=== PATIENT | male | born 1965 | race Caucasian/White ===

== ENCOUNTER 2022-01-17 04:46 | Emergency (ER) | payer OTHER ==
[2022-01-17 05:08] LABS: BASOPHIL 1.6 % (0-2); EOSINOPHIL 6.3 % (0-5); HGB 16.2 g/dl (13.2-18.0); LYMPHOCYTE 44.5 % (15-48); MCH 31.1 pg (25.0-31.0); MCHC 33.8 g/dL (32.0-36.0); MCV 92.1 fL (78.0-100.0); MONOCYTE 5.4 % (0-12); MPV 8.2 fL (6.0-9.5); NEUTROPHIL 41.6 % (41-80); NRBC 0; PLT 341 K/uL (150-400); RBC 5.21 M/uL (4.70-6.00); RDW 12.8 % (11.5-14.0); WBC 8.3 K/uL (4.0-10.5)
[2022-01-17 05:21] LABS: BUN/CREAT RATIO (CALC) 18.1 RATIO; CREATININE 0.72 mg/dL (0.67-1.17); POTASSIUM 3.9 mmol/L (3.5-5.1)
[2022-01-17] MEDS ORDERED: NORCO 5-325 TA1 EACH PO (08:56)
== END 2022-01-17 09:34 | disposition home or self-care (01) ==
LOC: FER 04:46
PROVIDERS: Emergency Medicine
DX: S51.012A Laceration without foreign body of left elbow, initial encounter (principal); S09.90XA Unspecified injury of head, initial encounter; M54.2 Cervicalgia; Z87.81 Personal history of (healed) traumatic fracture; Z23 Encounter for immunization; Z88.0 Allergy status to penicillin; W10.9XXA Fall (on) (from) unspecified stairs and steps, initial encounter; Y92.008 Other place in unspecified non-institutional (private) residence as the place of occurrence of the external cause
CPT/HCPCS: 36415; 70450; 72125; 80048; 85025; 90471; 90714; G0480; J7030